=== PATIENT | male | born 1940 | race Caucasian/White ===

== ENCOUNTER 2019-02-15 04:00 | Inpatient (IN) ==
--- NOTE | 2019-02-15 04:12 | Emergency Department Note ---
History of Present Illness General Chief complaint: Fall Stated complaint: FALL/RIB PAIN/SHORT OF BREATH Time Seen by Provider: 02/15/19 04:06 History of Present Illness This 78-year-old presents to the ER complaining of fall with right chest wall injury Location: Right chest wall Quality: Painful Severity: Moderate Duration: Early this morning Timing: Patient tripped and fell Context: Pain persisted and patient came in Modifying factors: better with rest; worse with activity Patient states he tripped and fell injuring his right side of chest. He does not believe he hit his head. No blood thinners. Patient comes from a retirement. Patient denies abdominal pain, numbness, tingling, facial pain, back pain, localized weakness or any other medical complaints. Home Medications Home Medications Medication Instructions Recorded Confirmed Type No Known Home Medications 02/15/19 02/15/19 History Allergies Allergy/AdvReac Type Severity Reaction Status Date / Time cat dander Allergy Unknown RESPIRATORY Verified 02/06/19 13:43 SYMPTOMS HAYFEVER Allergy UNKNOWN Uncoded 02/06/19 13:43 Past Med/Surg History Medical History Asthma Cerebral palsy History of ingrown nail Prostate cancer Surgical History S/P cataract surgery S/P tonsillectomy Family History Brother Prostate cancer Social History Preferred Language: Kuwaiti Communication Ability: Effective Early Childhood Associate Required: No Beliefs That Will Affect Care: None marital status: Single Current Living Situation: Alone current occupational status: retired Other Information That Helps Us Care for You: No Feels Safe at Home: Yes Safety Concerns: Feels Safe At This Time Smoking Status: Never smoker Do You Dip or Chew Tobacco: No ; Second Hand Exposure: No ; Tobacco Cessation Education Requested by Patient: No Hx Alcohol Use: Yes Alcohol type: wine Hx Substance Use: No Review of Systems All systems reviewed & are unremarkable except as noted in HPI & below Physical Exam Vital Signs Vital Signs - 24 hr 02/15/19 04:07 02/15/19 04:26 02/15/19 04:27 Temperature 36.8 C Temperature Source Oral Sepsis Recent Fever Within 48 Hours No Sepsis New/Unexplained Change in Mental Status No Sepsis Action Taken by Nursing No Action Required Oxygen Flow Rate - Titration Pulse Oximetry Post Tiitration Pulse Rate 78 75 Pulse Rate [Apical] 73 Pulse Rate from SpO2 Sensor Respiratory Rate 18 20 Respiratory Effort / Characteristics Non-Labored Respiratory Depth Normal Normal Respiratory Pattern Blood Pressure 197/113 H Blood Pressure [Right Arm] 168/86 H Blood Pressure Mean 141 Blood Pressure Mean [Right Arm] 113 Blood Pressure Position [Right Arm] Lying Pulse Oximetry 94 91 91 Oxygen Delivery Method Room Air Room Air Room Air Oxygen Flow Rate 02/15/19 04:58 02/15/19 05:00 02/15/19 05:10 Temperature Temperature Source Sepsis Recent Fever Within 48 Hours Sepsis New/Unexplained Change in Mental Status Sepsis Action Taken by Nursing Oxygen Flow Rate - Titration 15 Pulse Oximetry Post Tiitration 100 Pulse Rate 82 81 79 Pulse Rate [Apical] Pulse Rate from SpO2 Sensor 83 80 79 Respiratory Rate 20 16 16 Respiratory Effort / Characteristics Respiratory Depth Respiratory Pattern Blood Pressure 192/105 H 175/98 H 182/102 H Blood Pressure [Right Arm] Blood Pressure Mean 134 123 128 Blood Pressure Mean [Right Arm] Blood Pressure Position [Right Arm] Pulse Oximetry 100 100 100 Oxygen Delivery Method Non-rebreather Non-rebreather Non-rebreather Oxygen Flow Rate 15 15 15 02/15/19 05:13 02/15/19 05:20 02/15/19 06:00 Temperature Temperature Source Sepsis Recent Fever Within 48 Hours Sepsis New/Unexplained Change in Mental Status Sepsis Action Taken by Nursing Oxygen Flow Rate - Titration Pulse Oximetry Post Tiitration Pulse Rate 76 74 67 Pulse Rate [Apical] Pulse Rate from SpO2 Sensor 75 74 67 Respiratory Rate 15 17 18 Respiratory Effort / Characteristics Respiratory Depth Respiratory Pattern Blood Pressure 166/97 H 161/89 H 170/99 H Blood Pressure [Right Arm] Blood Pressure Mean 120 113 122 Blood Pressure Mean [Right Arm] Blood Pressure Position [Right Arm] Pulse Oximetry 100 99 100 Oxygen Delivery Method Non-rebreather Non-rebreather Non-rebreather Oxygen Flow Rate 15 15 15 02/15/19 06:13 02/15/19 06:30 02/15/19 07:00 Temperature Temperature Source Sepsis Recent Fever Within 48 Hours Sepsis New/Unexplained Change in Mental Status Sepsis Action Taken by Nursing Oxygen Flow Rate - Titration Pulse Oximetry Post Tiitration Pulse Rate 58 L 60 62 Pulse Rate [Apical] Pulse Rate from SpO2 Sensor 59 L 59 L 62 Respiratory Rate 13 14 15 Respiratory Effort / Characteristics Respiratory Depth Respiratory Pattern Blood Pressure 142/78 H 145/80 H 169/83 H Blood Pressure [Right Arm] Blood Pressure Mean 99 101 111 Blood Pressure Mean [Right Arm] Blood Pressure Position [Right Arm] Pulse Oximetry 99 100 100 Oxygen Delivery Method Non-rebreather Non-rebreather Oxygen Flow Rate 15 15 02/15/19 07:01 02/15/19 07:26 02/15/19 07:30 Temperature Temperature Source Sepsis Recent Fever Within 48 Hours Sepsis New/Unexplained Change in Mental Status Sepsis Action Taken by Nursing Oxygen Flow Rate - Titration Pulse Oximetry Post Tiitration Pulse Rate 57 L 71 Pulse Rate [Apical] Pulse Rate from SpO2 Sensor 58 L 69 Respiratory Rate 13 13 Respiratory Effort / Characteristics Respiratory Depth Respiratory Pattern Blood Pressure 177/94 H Blood Pressure [Right Arm] Blood Pressure Mean 121 Blood Pressure Mean [Right Arm] Blood Pressure Position [Right Arm] Pulse Oximetry 100 100 97 Oxygen Delivery Method Nasal Cannula Nasal Cannula Oxygen Flow Rate 2 2 02/15/19 07:45 Temperature Temperature Source Sepsis Recent Fever Within 48 Hours Sepsis New/Unexplained Change in Mental Status Sepsis Action Taken by Nursing Oxygen Flow Rate - Titration Pulse Oximetry Post Tiitration Pulse Rate Pulse Rate [Apical] Pulse Rate from SpO2 Sensor Respiratory Rate Respiratory Effort / Characteristics Non-Labored Spontaneous Respiratory Depth Normal Respiratory Pattern Regular Blood Pressure Blood Pressure [Right Arm] Blood Pressure Mean Blood Pressure Mean [Right Arm] Blood Pressure Position [Right Arm] Pulse Oximetry Oxygen Delivery Method Nasal Cannula Oxygen Flow Rate 2 PHYSICAL EXAM: VITALS: Vitals are noted on the nurse's note and reviewed by myself. Vital signs stable. GENERAL: Pleasant male who appears in pain, in no acute distress, n ondiaphoretic, well-developed well-nourished. SKIN: Abrasion to right lateral wall, the rest of the skin was without obvious lacerations or abrasions. Capillary reflex less than 2 seconds. HEAD: Normocephalic atraumatic. EARS: External auditory canals clear, tympanic membranes pearly taylor without erythema or effusion bilaterally. No hemotympanums. No padilla sign. No mastoid tenderness. EYES: Pupils equal round and reactive to light and accommodation. Conjunctivae without injection, sclerae without icterus. Extraocular movements intact. NOSE: Patent, turbinates without inflammation or discharge. No sinus tenderness. No septal hematoma or bleeding. FACE: No facial bone tenderness. Full range of motion of the jaw without tenderness. MOUTH: Mucous membranes moist. Pharynx without erythema or exudate. Uvula midline. Airway patent. Tongue does not deviate. NECK: Supple without nuchal rigidity. Cervical spine is nontender. Full range of motion of the neck without tenderness. No JVD. HEART: Regular rate and rhythm LUNGS: Diminished breath sounds in the right lower lung field. No retractions or accessory muscle use. Right lower lateral chest wall tenderness. ABDOMEN: Positive bowel sounds x 4. Normal tympanic percussion. Soft, nontender, without masses or organomegaly. No guarding or rebound tenderness. MUSCULOSKELETAL: No tenderness of the thoracic or lumbar spine. No tenderness with pelvic rocking. Full range of motion without tenderness to palpation in all extremities. Strength 5/5 throughout. P NEURO: Patient was alert and oriented to person place and time. Normal Mini- Mental status exam. Normal sensation to light and sharp touch. Negative pronator drift. Cerebellar function intact. No focal neurological deficits. Course Administered Medications Heparin Sodium (Porcine) (Heparin Sodium (Porcine)) 5,000 units SQ Q8 [facility] Stop: 03/17/19 13:59 Last Admin: 02/15/19 21:26 Dose: 5,000 units Documented by: [id number] Cosigned by: [id number] Admin: 02/15/19 14:20 Dose: 5,000 units Documented by: [id number] Cosigned by: [id number] Acetaminophen (Ofirmev) 1,000 mg in 100 mls @ 400 mls/hr IV Q8@0000,0800,1600 [facility] Stop: 03/17/19 09:09 Last Admin: 02/15/19 23:38 Dose: 400 mls/hr Documented by: [id number] Infusion: 02/15/19 16:25 Dose: 0 mls/hr Documented by: [id number] Admin: 02/15/19 15:59 Dose: 400 mls/hr Documented by: [id number] Infusion: 02/15/19 10:33 Dose: 0 mls/hr Documented by: [id number] Admin: 02/15/19 10:17 Dose: 400 mls/hr Documented by: [id number] Ioversol (Optiray 320 100ml) 100 ml IV ONCE PRN PRN Reason: Interaction Checking Stop: 02/19/19 04:48 Last Admin: 02/15/19 04:50 Dose: 92 ml Documented by: [id number] Discontinued Medications Cefazolin Sodium (Ancef 3000mg) 2,000 mg IV NOW STA Stop: 02/15/19 05:11 Last Admin: 02/15/19 05:33 Dose: Not Given Documented by: [id number] Fentanyl Citrate (Fentanyl Citrate) 50 mcg IV NOW STA Stop: 02/15/19 04:51 Last Admin: 02/15/19 05:01 Dose: 50 mcg Documented by: [id number] Fentanyl Citrate (Fentanyl Citrate) 50 mcg IV NOW STA Stop: 02/15/19 05:16 Last Admin: 02/15/19 05:05 Dose: 50 mcg Documented by: [id number] Cefazolin Sodium (Ancef 2000mg) 2,000 mg in 15 mls @ 3.75 mls/min IV NOW STA Stop: 02/15/19 05:21 Last Admin: 02/15/19 05:33 Dose: 3.75 mls/min Documented by: [id number] Lidocaine HCl (Xylocaine 1% (Local)) 20 ml INFIL NOW ONE Stop: 02/15/19 04:51 Last Admin: 02/15/19 05:20 Dose: 20 ml Documented by: [id number] Morphine Sulfate (Morphine Sulfate) 4 mg IV NOW STA Stop: 02/15/19 05:54 Last Admin: 02/15/19 05:57 Dose: 4 mg Documented by: [id number] Medical Decision Making Medical Records Attestation: I reviewed the patient's medical records. Home Medications Current Medication List: was personally reviewed by me Laboratory Data Attestation: I reviewed the patient's lab results. Result diagrams: 02/15/19 06:00 02/15/19 06:00 Lab Results 02/15/19 02/15/19 02/15/19 Range/Units 04:14 05:48 06:00 WBC 14.82 H (4.8-10.8) K/uL RBC 4.51 L (4.7-6.1) M/uL Hgb 12.9 L (14.0-18.0) g/dL POC Hgb 13.9 L (14.0-18.0) g/dl Hct 38.6 L (42-52) % POC Hct 41 L (42-52) % MCV 85.6 (80-100) fL MCH 28.6 (25-34) pg MCHC 33.4 (32-36) g/dL RDW Std Deviation 44.4 (36.4-46.3) fL RDW Coeff of Arpit 14.1 (11.5-14.5) % Plt Count 199 (130-400) K/uL MPV 10.2 (7.4-10.4) fL Immature Gran % (Auto) 0.3 % Neut % (Auto) 89.4 % Lymph % (Auto) 4.3 % Edmunds % (Auto) 5.4 % Eos % (Auto) 0.5 % Baso % (Auto) 0.1 % Immature Gran # (Auto) 0.04 H (0.00-0.02) K/uL Neut # (Auto) 13.25 H (1.4-6.5) K/uL Lymph # (Auto) 0.63 L (1.2-3.4) K/uL Edmunds # (Auto) 0.80 H (0.11-0.59) K/uL Eos # (Auto) 0.08 (0-0.5) K/uL Baso # (Auto) 0.02 (0-0.2) K/uL PT (9.0-12.0) Seconds INR (0.9-1.1) APTT (21.0-31.0) Seconds PTT Ratio POC Sodium 140 (135-144) mEq/L Sodium (136-145) mmol/L POC Potassium 3.9 (3.3-5.0) mEq/L Potassium (3.5-5.1) mmol/L POC Chloride 100 L (101-112) mEq/L Chloride (98-107) mmol/L Carbon Dioxide (21-32) mmol/L POC Total CO2 30 (24-31) mEq/l Anion Gap (3-11) POC Anion Gap 15.0 L (16-25) mmol/L POC BUN 23 H (7-18) mg/dl BUN (7-18) mg/dl Creatinine (0.6-1.4) mg/dl POC Creatinine 1.2 (0.6-1.3) mg/dl Est Cr Clr Drug Dosing ml/min Est GFR ( Amer) Est GFR (Non-Af Amer) BUN/Creatinine Ratio (10-20) Glucose (70-99) mg/dl POC Glucose (other) 131 H (70-99) mg/dl Calcium (8.5-10.1) mg/dl POC Ioniz Calcium Eugene 1.11 L (1.12-1.32) mmol/l Total Bilirubin (0.2-1) mg/dl AST (15-37) U/L ALT (12-78) U/L Alkaline Phosphatase (45-117) U/L Total Protein (6.4-8.2) gm/dl Albumin (3.4-5.0) gm/dl Globulin (2.5-4.0) gm/dl Albumin/Globulin Ratio (0.9-2) Urine Color Yellow Urine Appearance Clear (Clear) Urine pH 6.5 (4.5-7.5) Ur Specific Exeter 1.036 H (1.000-1.030) Urine Protein Negative (Negative) Urine Glucose (UA) Negative (Negative) Urine Ketones Negative (Negative) Urine Blood Negative (Negative) Urine Nitrite Negative (Negative) Urine Bilirubin Negative (Negative) Urine Urobilinogen Negative (Negative) Ur Leukocyte Esterase Negative (Negative) 02/15/19 02/15/19 Range/Units 06:00 06:00 WBC (4.8-10.8) K/uL RBC (4.7-6.1) M/uL Hgb (14.0-18.0) g/dL POC Hgb (14.0-18.0) g/dl Hct (42-52) % POC Hct (42-52) % MCV (80-100) fL MCH (25-34) pg MCHC (32-36) g/dL RDW Std Deviation (36.4-46.3) fL RDW Coeff of Arpit (11.5-14.5) % Plt Count (130-400) K/uL MPV (7.4-10.4) fL Immature Gran % (Auto) % Neut % (Auto) % Lymph % (Auto) % Edmunds % (Auto) % Eos % (Auto) % Baso % (Auto) % Immature Gran # (Auto) (0.00-0.02) K/uL Neut # (Auto) (1.4-6.5) K/uL Lymph # (Auto) (1.2-3.4) K/uL Edmunds # (Auto) (0.11-0.59) K/uL Eos # (Auto) (0-0.5) K/uL Baso # (Auto) (0-0.2) K/uL PT 10.3 (9.0-12.0) Seconds INR 1.0 (0.9-1.1) APTT 24.6 (21.0-31.0) Seconds PTT Ratio 0.9 POC Sodium (135-144) mEq/L Sodium 139 (136-145) mmol/L POC Potassium (3.3-5.0) mEq/L Potassium 3.8 (3.5-5.1) mmol/L POC Chloride (101-112) mEq/L Chloride 103 (98-107) mmol/L Carbon Dioxide 31 (21-32) mmol/L POC Total CO2 (24-31) mEq/l Anion Gap 5.0 (3-11) POC Anion Gap (16-25) mmol/L POC BUN (7-18) mg/dl BUN 21 H (7-18) mg/dl Creatinine 1.18 (0.6-1.4) mg/dl POC Creatinine (0.6-1.3) mg/dl Est Cr Clr Drug Dosing 41.4 ml/min Est GFR ( Amer) 68.1 Est GFR (Non-Af Amer) 58.8 BUN/Creatinine Ratio 18.1 (10-20) Glucose 117 H (70-99) mg/dl POC Glucose (other) (70-99) mg/dl Calcium 8.8 (8.5-10.1) mg/dl POC Ioniz Calcium Eugene (1.12-1.32) mmol/l Total Bilirubin 0.3 (0.2-1) mg/dl AST 17 (15-37) U/L ALT 16 (12-78) U/L Alkaline Phosphatase 87 (45-117) U/L Total Protein 7.4 (6.4-8.2) gm/dl Albumin 3.7 (3.4-5.0) gm/dl Globulin 3.7 (2.5-4.0) gm/dl Albumin/Globulin Ratio 1.0 (0.9-2) Urine Color Urine Appearance (Clear) Urine pH (4.5-7.5) Ur Specific Exeter (1.000-1.030) Urine Protein (Negative) Urine Glucose (UA) (Negative) Urine Ketones (Negative) Urine Blood (Negative) Urine Nitrite (Negative) Urine Bilirubin (Negative) Urine Urobilinogen (Negative) Ur Leukocyte Esterase (Negative) Imaging Data Attestation: I personally reviewed and interpreted this imaging study as follows: Blood Pressure Blood Pressure Findings: Elevated blood pressure Blood Pressure Disposition: Referred to patients primary care provider [facility] Narrative Prior records/ancillary studies reviewed. Triage Nursing notes reviewed. Additional history obtained from EMS. The patient's history was concerning for traumatic injury Differential diagnosis: Etiologies such as fracture, dislocation, intra-abdominal, pneumothorax, intrathoracic , intracranial, neurologic, as well as other traumatic pathologies were entertained. Physical examination findings: As above. The patients vitals were hypertensive. ER treatment provided: IV Normal Saline hydration chest tube, 8 Icelandic 16 cm Indication: Pneumothorax Written consent was obtained after the risks and benefits were explained, including but not limited to cardiac/liver/lung injury, bleeding, scarring, infection, pain, and bone/joint/nerve damage. At this time, the risks of the procedure are less than the risks of NOT performing the procedure. A time out was taken and the correct patient and site identified. The patient was prepped and draped in the standard surgical fashion. 1% lidocaine without epinephrine was infused over the fifth intercostal space into the subcutaneous tissue. A 1 cm incision was made transversely in the mid axillary line over the fifth int ercostal rib. The introducer was placed over the fifth rib and a gush of air was felt. Introducer was advanced and condensation was noted in the tube. 8 Icelandic thoracostomy tube was inserted in the superior/posterior portion of the pleural space. 1-0 silk suture was used to approximate the skin above the thoracostomy tube and then used to secure the thoracostomy tube. An occlusive dressing was then placed and the thoracostomy tube was hooked to the Pleur-evac suction. No air leak was appreciated. The patient tolerated the procedure well without complications. A postoperative x-ray was then performed which showed the thoracostomy tube in the correct position. On reassessment the patient felt better. Vital signs were stable. Diagnostic interpretation by me: EKG ordered for pneumothorax EKG: Normal sinus, normal intervals, no acute ST-T wave changes. Impression normal sinus rhythm interpreted by myself I think arrhythmia is unlikely. EKG shows normal sinus rhythm with no interval abnormalities such as QT prolongation or WPW. There are no findings to suggest Brugada syndrome. Cardiac monitoring in the emergency department reveals no tachycardic or bradycardic dysrhythmia. Hypertrophic cardiomyopathy was considered but there are no clear historical elements pointing toward this. EKG is not suggestive. The QRS voltage is not extremely large and there are no suggestive Q waves. The labs revealed stable creatinine, mild anemia Imaging studies: CT CHEST With Contrast: Comparison is made to CT chest on 10/28/2011. Nondisplaced, comminuted fractures of the right posterolateral ninth rib. Overlying subcutaneous emphysema. Moderate right-sided pneumothorax, approximately 30% of the lung volume. Trace pleural fluid on the right. Patchy densities in the right lung may represent atelectasis versus contusions. Nonspecific small mediastinal lymph nodes. Probable hemangioma in the right liver. Left renal cyst. Question cholelithiasis partially visualized. Radiologist: Tang Amezcua M.D. CT HEAD: No acute intracranial abnormality identified. Chronic small vessel ischemic disease and cerebral volume loss. Prominent atrophy of the cerebellar hemispheres. Bilateral lens implants. Polyps versus mucous retention cysts in the maxillary sinuses. Mild mucosal thickening in the ethmoid air cells. Atherosclerotic calcifications in the intracranial vasculature. Radiologist: Tang Amezcua M.D. CT C SPINE: No acute traumatic abnormality identified. Osteopenia. Degenerative changes of the spine. Ossification in the nuchal ligament is likely related to remote trauma. Atherosclerotic changes of the vasculature. Radiologist: Tang Amezcua M.D. Postprocedural chest x-ray shows proper placement of chest tube with better inflation of the lung per my interpretation. Consultation: A consultation was placed with Dr. Krishnan. The case was discussed and diagnostics were reviewed. He will evaluate the patient. Medicine was consulted. They will evaluate the patient. This appears to be consistent with rib fracture with pneumothorax. Chest tube was placed. Postprocedural x-ray shows proper placement of the tube. Lung is inflated better. Cardiothoracic was consulted along with medicine. Patient will be evaluated for admission. Patient was started antibiotics. His pain is managed. By the evaluation outlined above emergent etiologies such as intr a-abdominal, intracranial, neurologic,as well as others were deemed relatively unlikely. Repeat abdominal exam is benign. Patient felt much better after being medicated and having the chest tube placed. I attempted to call the niece per the patient's request with no response. The pt informed about the findings as listed above. All questions were answered and pleased with the treatment. I have personally spent greater than 30 minutes of critical care time in the direct management of this patient. This includes bedside care, interpretation of diagnostic studies, and testing, discussion with consultants, patient, and family members, and other required patient management activities. This 30 minutes is in excess of all separately billable procedures. Case reviewed with my attending The chart was completed utilizing [employer] Speech voice recognition software. Grammatical errors, random word insertions, pronoun errors, and incomplete sentences are an occassional consequence of this system due to software limitations, ambient noise, and hardware issues. Any formal questions or concerns about the content, text, or information contained within the body of this dictation should be directly addressed to the physician assistant prosecuting attorney for clarification. Impression & Plan Pneumothorax, Closed rib fracture, Fall Discharge Plan Visit Data *Final* Discharge Date/Time: 02/15/19 08:51 Chief Complaint: Fall Stated Complaint: FALL/RIB PAIN/SHORT OF BREATH ED Provider: Chong Silva ED Midlevel Provider: Kate Badillo Discharge Problem: Pneumothorax, Closed rib fracture, Fall Patient Disposition: Admitted As Inpatient Condition: Good Discharge Instructions Interventions: ED Discharge Assessment Last Done: 02/15/19 08:51 Discharge Problem: Pneumothorax Qualifiers: Pneumothorax type: traumatic Encounter type: initial encounter Qualified Code(s): S27.0XXA - Traumatic pneumothorax, initial encounter
[2019-02-15 04:26] LABS: iSTAT Creatinine 1.2 mg/dl (0.6-1.3); iSTAT Hemoglobin 13.9 g/dl (14.0-18.0); iSTAT Ionized Calcium 1.11 mmol/l (1.12-1.32); iSTAT Potassium 3.9 mEq/L (3.3-5.0)
[2019-02-15] MEDS ORDERED: IOVERSOL 100ml IV PRN (04:49)
[2019-02-15] MEDS ORDERED: LIDOCAINE HCL 1% 20 ML VIAL INFIL ONE (04:50)
[2019-02-15] MEDS ORDERED: fentaNYL citrate 100 MCG/2 ML VIAL IV STA ×2 (04:50→05:15)
[2019-02-15] MEDS ORDERED: CEFAZOLIN 3000MG/72.5 ML BAG IV STA (05:10)
[2019-02-15] MEDS ORDERED: CEFAZOLIN 2000MG 2,000 MG/15 ML SYR IV STA (05:18)
--- NOTE | 2019-02-15 05:21 | Emergency Department Note ---
ED Visit Note Physician Evaluation Note: I have personally evaluated and examined this patient. I agree with assessment and plan of Genet Badillo PA-C. Pleasant 78 yr old male with history CP who notes he got up this morning and tripped landing on right side. Immediately pain and difficulty taking deep breath. States feels OK if not moving or deep breath. On exam mild hypoxia (94%) on RA. TTP right lower lateral ribs with abrasion noted at this area. No significant crepitus appreciated initially. CT head/cervical OK. CT chest with large pneumothorax. 8 Fr chest tube placed by Genet Badillo with air noted and post CXR with well inflated lung (mild pneumo appreciated still). Patient tolerated this well with IV fentanyl used for pain control. I reviewed with Dr Krishnan who will evaluate patient further and hospitalist will be consulted for admission given his comorbidities. Repeat evals patient breathing comfortably and sats 100% on NRB (pneumothorax protocol). Abdominal exam benign and chest tube without apparent leak. Brant Hong MD
[2019-02-15] MEDS ORDERED: MoRPHine SULFATE 4 MG/ML 1 ML CARP\\VIAL IV STA (05:53)
[2019-02-15 06:17] LABS: Basophils # (auto) 0.02 K/uL (0-0.2); Basophils % (auto) 0.1 %; Eosinophils # (auto) 0.08 K/uL (0-0.5); Eosinophils % (auto) 0.5 %; Hematocrit (blood only) 38.6 % (42-52); Hemoglobin 12.9 g/dL (14.0-18.0); Immature Granulocytes # (auto) 0.04 K/uL (0.00-0.02); Immature Granulocytes % (auto) 0.3 %; Lymphocytes # (auto) 0.63 K/uL (1.2-3.4); Lymphocytes % (auto) 4.3 %; Mean Corpuscular Hemoglobin 28.6 pg (25-34); Mean Corpuscular Hgb Conc 33.4 g/dL (32-36); Mean Corpuscular Volume 85.6 fL (80-100); Mean Platelet Volume 10.2 fL (7.4-10.4); Monocytes % (auto) 5.4 %; Neutrophils # (auto) 13.25 K/uL (1.4-6.5); Neutrophils % (auto) 89.4 %; Platelet Count 199 K/uL (130-400); RDW Coefficient of Variation 14.1 % (11.5-14.5); RDW Standard Deviation 44.4 fL (36.4-46.3); Red Blood Count 4.51 M/uL (4.7-6.1); White Blood Count 14.82 K/uL (4.8-10.8)
[2019-02-15 06:34] LABS: Albumin Level 3.7 gm/dl (3.4-5.0); BUN Creatinine Ratio 18.1 (10-20); Calcium 8.8 mg/dl (8.5-10.1); Creatinine Clr Calc Pharmacy 41.4 ml/min; Est GFR (African American) 68.1; Est GFR (Non-African American) 58.8; Potassium 3.8 mmol/L (3.5-5.1)
[2019-02-15 06:36] LABS: Bilirubin,Total 0.3 mg/dl (0.2-1); Globulin 3.7 gm/dl (2.5-4.0); Total Protein 7.4 gm/dl (6.4-8.2)
[2019-02-15 06:40] LABS: Partial Thromboplastin Ratio 0.9; Partial Thromboplastin Time 24.6 Seconds (21.0-31.0); Prothrombin Time 10.3 Seconds (9.0-12.0)
[2019-02-15 06:43] LABS: Appearance Urine Clear (Clear); Bilirubin Urine Negative (Negative); Blood Urine Negative (Negative); Color Urine Yellow; Glucose Urine UA Negative (Negative); Ketones Urine Negative (Negative); Leukocyte Esterase Urine Negative (Negative); Nitrite Urine Negative (Negative); Protein Urine Negative (Negative); Specific Gravity Urine 1.036 (1.000-1.030); Urobilinogen Urine Negative (Negative); pH Urine 6.5 (4.5-7.5)
--- NOTE | 2019-02-15 06:58 | XRay Report ---
XR chest 1V portable CLINICAL HISTORY: post pigtail insertion for pneumo COMPARISON STUDY: Chest CT dated 02/15/2019 FINDINGS: The heart is enlarged. There has been interval insertion of a right-sided chest tube. No pn eumothorax is visualized. There is no overt failure. There is mild interstitial thickening/atelectasi s at the lung bases. There are no significant pleural effusions.[ IMPRESSION: Interval insertion of a right-sided chest tube. No evidence of pneumothorax. Electronically signed by: Costa Stevens M.D. 02/15/2019 6:57 AM
--- NOTE | 2019-02-15 07:09 | CT Scan Report ---
CT head/brain wo con CLINICAL HISTORY: 78 years-old Male presenting with fall. TECHNIQUE: Multidetector CT imaging of the head was performed without the use of intravenous contrast . IV contrast: None. One or more dose lowering techniques were used consistent with the principles of ALARA (as low as reasonably achievable), including automatic exposure control, mA or kV adjustment t o individual patient size, and/or use of iterative reconstruction. COMPARISON: None. CT DOSE (mGy.cm): The estimated cumulative dose is 1269.30. FINDINGS: Woodworker Helper topogram: Unremarkable. Proportional ventricular and sulcal prominence, likely age-related parenchymal volume loss. No hemorr mita. Focal atrophy of the cerebellar hemispheres, which most severely affects the superior and gabriela edian portions. Brain parenchyma otherwise normal in appearance with preserved taylor-white differentia tion. No acute territorial infarct. No mass effect or midline shift. No extra-axial fluid collection. Minimal mucosal thickening in ethmoid air cells and maxillary sinuses. Calvarium intact. IMPRESSION: 1. No acute intracranial abnormality. 2. Cerebellar atrophy. This can be seen in the setting of certain medication use or vitamin deficien cies among many other etiologies. Electronically signed by: Santos Tipton M.D. 02/15/2019 7:08 AM
--- NOTE | 2019-02-15 07:21 | CT Scan Report ---
CT OF THE CERVICAL SPINE WITHOUT CONTRAST CLINICAL HISTORY: Fall. COMPARISON STUDY: No previous studies for comparison. TECHNIQUE: Helical axial images of the cervical spine were obtained without IV contrast. Sagittal a nd coronal reconstructions were viewed. Automated exposure control was utilized for the study. A do se lowering technique was utilized adhering to the principles of ALARA. FINDINGS: Alignment of the cervical spine is anatomic. Vertebral body heights are maintained. No acut e cervical spine fracture or subluxation is present. There is no prevertebral edema. Facet joints are intact. Moderate multilevel degenerative changes within the cervical spine are noted. A right pneum othorax is better depicted on the chest CT. IMPRESSION: 1. No acute cervical spine fracture or subluxation. 2. Right pneumothorax which is better depicted on the chest CT. Please see that report for further de scription. Electronically signed by: Rajendra Wood M.D. 02/15/2019 7:20 AM
--- NOTE | 2019-02-15 07:33 | CT Scan Report ---
CT OF THE CHEST WITH IV CONTRAST CLINICAL HISTORY: fall, right sided cp COMPARISON STUDY: Chest CT October 28, 2011. TECHNIQUE: Following IV administration of 92 mL of Optiray-320, helical axial images of the chest we re obtained. Sagittal and coronal reconstructions were viewed as well as maximal intensity projectio ns on an independent 3-D workstation. Automated exposure control was utilized for the study. A dose lowering technique was utilized adhering to the principles of ALARA. CT DOSE: 1269.30 mGy.cm FINDINGS: There is no evidence for traumatic injury to the thoracic aorta. The heart is mildly enlar ged. Prominent retrocrural lymph nodes are unchanged since CT of October 28, 2011. These are benign. The re is a moderate right pneumothorax. An acute nondisplaced fracture of the posterolateral right ninth rib is noted. No acute left rib fractures noted. There is no acute thoracic spine fracture. Right rodrigo ng airspace opacities reflect atelectasis. A cyst within the upper pole the left kidney is noted. A r ight hepatic lobe lesion is unchanged since prior CT. This benign given stability. There are small ga llstones within the gallbladder. IMPRESSION: 1. Moderate right pneumothorax. Acute nondisplaced fracture of the posterolateral right ninth rib. 2. No evidence for traumatic injury to the thoracic aorta. Electronically signed by: Rajendra Wood M.D. 02/15/2019 7:32 AM
--- NOTE | 2019-02-15 08:02 | Consultation Report ---
DATE OF CONSULTATION: 02/15/2019 REASON FOR CONSULTATION: 1. Right pneumothorax. 2. Rib fracture. HISTORY OF PRESENT ILLNESS: This is a 78-year-old male who presented to the Emergency Department secondary to pain in his right chest wall. The patient says that he got up out of bed last evening and he tripped ultimately falling, landing on the right side of his chest. Because of his symptomatology, he presented to the Emergency Department. In the Emergency Department, the patient underwent various diagnostic imaging including a CT scan of his head that showed no acute intracranial injuries. He did have a CT scan of his chest that showed a moderate right pneumothorax and a fracture of his right ninth rib that was nondisplaced. Cervical spine CT scan showed no evidence of cervical spine fracture or subluxation. Because of the pneumothorax noted, the treating clinician in the Emergency Department placed a chest tube. A post-procedure chest x-ray showed resolution of the patient's pneumothorax. The patient has ultimately been admitted to the medical service and we have been asked to see for management of his pneumothorax, chest tube and rib fractures. At the time of our visit in the Emergency Department, the patient was resting comfortably in bed. He did complain of some pain where his chest tube was inserted. Concerning other symptomatology, he did fall as noted above. It was a mechanical fall, did not report any preceding chest pain or syncope. There is no clear indication of head injury. He denies any tinnitus, vertigo, visual changes, sore throat, or neck pain. He does note some right-sided chest wall pain. Currently, he is not short of breath. He denies any abdominal pain, nausea, vomiting or myalgias. He has no history of DVT or PE. PAST MEDICAL HISTORY: Includes the followin. History of cerebral palsy. 2. Asthma. 3. History of prostate cancer. PAST SURGICAL HISTORY: Includes: 1. Cataract surgery. 2. Tonsillectomy. FAMILY HISTORY: His brother suffered from prostate cancer. SOCIAL HISTORY: He is a lifetime nonsmoker. ALLERGIES: HE HAS LISTED ALLERGIES TO CAT DANDER. HOME MEDICATIONS: None. REVIEW OF SYSTEMS: As described above. PHYSICAL EXAMINATION: VITAL SIGNS: Blood pressure is 145/80, pulse 60 and regular, respirations are 16 and unlabored. He is afebrile, temperature 36.8. Pulse ox is 100% on 2 liters nasal cannula. GENERAL: He is alert, he is oriented x3, he is in no distress. HEENT: There are no signs of head trauma. Eyes: There is no conjunctival abnormality. Ears: Auditory acuity is grossly intact. Nose: There is no evidence of nasal trauma. Mouth: Has dry mucous membranes. NECK: Supple without tracheal shift. CARDIOVASCULAR: Regular rate and rhythm. LUNGS: Revealed breath sounds were present bilaterally, no use of accessory muscles was noted. ABDOMEN: Soft and nontender. EXTREMITIES: Revealed no cyanosis, clubbing or edema. NEUROLOGIC: Revealed the patient was alert and oriented x3. He can move all 4 extremities without noted focal deficits. DIAGNOSTIC DATA: As noted above. In addition, the patient had a CBC where his white blood cell count is 14.8, hemoglobin and hematocrit are 12.9 and 38.6, platelet count is noted to be within the normal range. Coagulation studies are noted to be within normal range. Chemistry profile showed sodium, potassium as well as creatinine are normal. There is slight elevation of his BUN at 21. IMPRESSION: A 78-year-old male status post fall resulting in rib fracture and pneumothorax. PLAN: As stated, the treating Emergency Room clinician has placed a chest tube. We will continue the chest tube. We will place it on waterseal for 4 hours alternating with suction at 20 cm of water for 4 hours. We will follow serial chest x-rays. At the present time, he does not have an air leak, so his chest tube may be able to be removed in the next 24-48 hours. Concerning rib fractures, mainstay of treatment for this will be adequate pain control. I would recommend using Tylenol 1000 mg IV every 8 hours on a scheduled basis along with p.r.n. oxycodone to achieve adequate pain control, so the patient can cough and deep breathe adequately. I have ordered incentive spirometry. The remainder of his care will be deferred to the medical service.
[2019-02-15] MEDS ORDERED: ONDANSETRON INJ 2 MG/ML 2 ML VIAL IV PRN (08:58)
[2019-02-15] MEDS: ACETAMINOPHEN 1,000 MG/100 ML VIAL IV SCH ×3 (10:17→23:38)
[2019-02-15] MEDS: HEPARIN SOD 5,000 UNIT/0.5 ML VIAL SQ SCH ×2 (14:20→21:26)
--- NOTE | 2019-02-15 14:20 | History & Physical Report ---
Date of Service February 15, 2019 Assessment & Plan (1) Pneumothorax: 78-year-old male was admitted on 15 February 2019 for pneumothorax following a fall. Pneumothorax, non-displaced right ninth rib fracture, fall: Likely had some transient orthostatic hypotension leading to a sudden fall earlier this morning. No reports of associated headache, chest pain/palpitations, preceding breathing difficulties, or recent illness. - In ED, afebrile, briefly bradycardic, mild to moderately hypertensive, and ultimately SpO2 96% on room air. WBC 14. Hemoglobin 12.9. Normal INR. Creatinine 1.18 (similar to 2012). EKG is NSR 72. CT head & c-spine non-acute. CT chest notes moderate right PTX (see full report). - In ED, a chest tube was placed. Given single dose of Ancef. - Thoracic surgery was consulted (see related notes). They will keep the chest tube on alternating suction and waterseal. Recommended pain control with Tylenol and as needed oxycodone for the rib fracture. Incentive spirometry as well. - Pneumothorax management per thoracic surgery. Repeat CXR in the morning. C ontinued pain management as above. Is on a small amount of supplemental oxygen. Incidental CT chest findings (reviewed these with patient recommended f/u with PCP for monitoring): - Cyst in the upper pole of the left kidney. - Right hepatic lobe lesions unchanged since prior CT. - Small gallstones within the gallbladder. Ongoing medical issues: - Cerebral palsy: Minimal deficits. CT head did note some cerebellar atrophy. - Seasonal allergies: Reportedly not on any home meds for this. - Prostate cancer: Diagnosed in 2017. History of radiation therapy and hormone ablation. Patient denies current related concerns. Code status: Conditional. Wants chest compressions but no mechanical ventilation. Diet: Regular. DVT prophy: Heparin every 8 hours. PT/OT: Deferred. Disbo: Admitted to [facility] with telemetry. Lives in a [facility] home. (2) Closed rib fracture: (3) Fall: (4) Cyst of left kidney: (5) Liver lesion, left lobe: (6) Gallstones: (7) Cerebral palsy: (8) Seasonal allergies: (9) Prostate cancer: History of Present Illness Primary Care Provider: NO PCP 78-year-old male presents to the emergency department after suffering a mechanical fall prior to arrival. Patient says that much earlier this morning he went to get out of bed to use the bathroom. He thinks he sat up too quickly because he immediately felt a bit more weak and off balance. He then fell and struck the right side of his chest into the leg of his walker. He remembers all events and denies any head injury or loss of consciousness. He says he tried to get back up but it was too painful, so he called for assistance (lives in a [facility] home) and was ultimately brought to the hospital. At present, patient says that the right side of his chest is uncomfortable but not particularly painful. He did have some immediate difficulty breathing which has improved since placement of his chest tube. Denies any classic "chest pain" throughout this time. He denies any known trauma otherwise from his fall, specifically denying any neck, abdominal, back, or extremity pains. No other acute patient concerns. - Past medical history includes seasonal allergies, mild cerebral palsy, prostate cancer. - Past surgical history includes cataract removal, tonsillectomy. - Social history includes never smoked. Occasional alcohol use. Lives in a [facility] home. Allergies Allergy/AdvReac Type Severity Reaction Status Date / Time cat dander Allergy Unknown RESPIRATORY Verified 02/06/19 13:43 SYMPTOMS HAYFEVER Allergy UNKNOWN Uncoded 02/06/19 13:43 Home Medications Home Medications Medication Instructions Recorded Confirmed Type No Known Home Medications 02/15/19 02/15/19 History Past Med/Surg History Medical History Asthma Cerebral palsy History of ingrown nail Prostate cancer Surgical History S/P cataract surgery S/P tonsillectomy Family History Brother Prostate cancer Social History Preferred Language: Hebrew Communication Ability: Effective Gauge Inspector Required: No Beliefs That Will Affect Care: None marital status: Single Current Living Situation: Alone current occupational status: retired Other Information That Helps Us Care for You: No Feels Safe at Home: Yes Safety Concerns: Feels Safe At This Time Smoking Status: Never smoker Do You Dip or Chew Tobacco: No ; Second Hand Exposure: No ; Tobacco Cessation Education Requested by Patient: No Hx Alcohol Use: Yes Alcohol type: wine Hx Substance Use: No Review of Systems Review of Systems: Constitutional: Denies fevers, chills, focal weakness Eyes: Denies any visual loss or diplopia ENT: Denies any ear/nose/throat pain or difficulty speaking or swallowing Respiratory: Positive dyspnea. No preceding cough or hemoptysis. Cardiovascular: Denies any central chest pain or feeling of edema. Positive right chest wall pain. Gastrointestinal: Denies any abdominal pain, nausea/vomiting/diarrhea Musculoskeletal: Denies any acute extremity pains, myalgias, or focal weakness Skin: Denies any known acute rashes or lesions Neuro: Denies any headache, acute focal weakness or numbness, or difficulties with speech or swallow. Physical Exam Physical Exam: GENERAL: Awake, alert, well-appearing, in no acute distress HENT: Normocephalic, atraumatic. Oropharynx unremarkable. EYES: Normal conjunctiva. Sclera non-icteric. NECK: Inspection normal. Non-tender. Supple and full ROM. No nuchal rigidity. CARDIAC: +S1S2 regular but borderline bradycardia, no murmurs. RESPIRATORY: Clear to auscultation. No wheezes or rales. Normal respiratory effort. There is a right chest tube in place with overlying dressing c/d/i. GI: +BS, soft, non-distended. No tenderness to palpation. No rebound or guarding. EXTREMITIES: No pedal edema or calf tenderness. Moving all extremities easily. NEURO: No gross neuro deficits. Results & Data Vital Signs (Past 12 Hours) Vital Signs Temp Pulse Pulse Resp BP BP Pulse Ox 02/15/19 11:20 36.8 C 58 L 18 145/72 H 96 02/15/19 09:20 64 02/15/19 09:04 37 C 66 16 185/84 H 92 02/15/19 07:30 71 13 177/94 H 97 02/15/19 07:26 100 02/15/19 07:01 57 L 13 100 02/15/19 07:00 62 15 169/83 H 100 02/15/19 06:30 60 14 145/80 H 100 02/15/19 06:13 58 L 13 142/78 H 99 02/15/19 06:00 67 18 170/99 H 100 02/15/19 05:20 74 17 161/89 H 99 02/15/19 05:13 76 15 166/97 H 100 02/15/19 05:10 79 16 182/102 H 100 02/15/19 05:00 81 16 175/98 H 100 02/15/19 04:58 82 20 192/105 H 100 02/15/19 04:27 73 20 168/86 H 91 02/15/19 04:26 75 91 02/15/19 04:07 36.8 C 78 18 197/113 H 94 Laboratory Results 02/15/19 02/15/19 02/15/19 Range/Units 06:00 06:00 06:00 WBC 14.82 H (4.8-10.8) K/uL RBC 4.51 L (4.7-6.1) M/uL Hgb 12.9 L (14.0-18.0) g/dL POC Hgb (14.0-18.0) g/dl Hct 38.6 L (42-52) % POC Hct (42-52) % MCV 85.6 (80-100) fL MCH 28.6 (25-34) pg MCHC 33.4 (32-36) g/dL RDW Std Deviation 44.4 (36.4-46.3) fL RDW Coeff of Arpit 14.1 (11.5-14.5) % Plt Count 199 (130-400) K/uL MPV 10.2 (7.4-10.4) fL Immature Gran % (Auto) 0.3 % Neut % (Auto) 89.4 % Lymph % (Auto) 4.3 % Power % (Auto) 5.4 % Eos % (Auto) 0.5 % Baso % (Auto) 0.1 % Immature Gran # (Auto) 0.04 H (0.00-0.02) K/uL Neut # (Auto) 13.25 H (1.4-6.5) K/uL Lymph # (Auto) 0.63 L (1.2-3.4) K/uL Power # (Auto) 0.80 H (0.11-0.59) K/uL Eos # (Auto) 0.08 (0-0.5) K/uL Baso # (Auto) 0.02 (0-0.2) K/uL PT 10.3 (9.0-12.0) Seconds INR 1.0 (0.9-1.1) APTT 24.6 (21.0-31.0) Seconds PTT Ratio 0.9 POC Sodium (135-144) mEq/L Sodium 139 (136-145) mmol/L POC Potassium (3.3-5.0) mEq/L Potassium 3.8 (3.5-5.1) mmol/L POC Chloride (101-112) mEq/L Chloride 103 (98-107) mmol/L Carbon Dioxide 31 (21-32) mmol/L POC Total CO2 (24-31) mEq/l Anion Gap 5.0 (3-11) POC Anion Gap (16-25) mmol/L POC BUN (7-18) mg/dl BUN 21 H (7-18) mg/dl Creatinine 1.18 (0.6-1.4) mg/dl POC Creatinine (0.6-1.3) mg/dl Est Cr Clr Drug Dosing 41.4 ml/min Est GFR ( Amer) 68.1 Est GFR (Non-Af Amer) 58.8 BUN/Creatinine Ratio 18.1 (10-20) Glucose 117 H (70-99) mg/dl POC Glucose (other) (70-99) mg/dl Calcium 8.8 (8.5-10.1) mg/dl POC Ioniz Calcium [place] (1.12-1.32) mmol/l Total Bilirubin 0.3 (0.2-1) mg/dl AST 17 (15-37) U/L ALT 16 (12-78) U/L Alkaline Phosphatase 87 (45-117) U/L Total Protein 7.4 (6.4-8.2) gm/dl Albumin 3.7 (3.4-5.0) gm/dl Globulin 3.7 (2.5-4.0) gm/dl Albumin/Globulin Ratio 1.0 (0.9-2) Urine Color Urine Appearance (Clear) Urine pH (4.5-7.5) Ur Specific [place] (1.000-1.030) Urine Protein (Negative) Urine Glucose (UA) (Negative) Urine Ketones (Negative) Urine Blood (Negative) Urine Nitrite (Negative) Urine Bilirubin (Negative) Urine Urobilinogen (Negative) Ur Leukocyte Esterase (Negative) 02/15/19 02/15/19 Range/Units 05:48 04:14 WBC (4.8-10.8) K/uL RBC (4.7-6.1) M/uL Hgb (14.0-18.0) g/dL POC Hgb 13.9 L (14.0-18.0) g/dl Hct (42-52) % POC Hct 41 L (42-52) % MCV (80-100) fL MCH (25-34) pg MCHC (32-36) g/dL RDW Std Deviation (36.4-46.3) fL RDW Coeff of Arpit (11.5-14.5) % Plt Count (130-400) K/uL MPV (7.4-10.4) fL Immature Gran % (Auto) % Neut % (Auto) % Lymph % (Auto) % Power % (Auto) % Eos % (Auto) % Baso % (Auto) % Immature Gran # (Auto) (0.00-0.02) K/uL Neut # (Auto) (1.4-6.5) K/uL Lymph # (Auto) (1.2-3.4) K/uL Power # (Auto) (0.11-0.59) K/uL Eos # (Auto) (0-0.5) K/uL Baso # (Auto) (0-0.2) K/uL PT (9.0-12.0) Seconds INR (0.9-1.1) APTT (21.0-31.0) Seconds PTT Ratio POC Sodium 140 (135-144) mEq/L Sodium (136-145) mmol/L POC Potassium 3.9 (3.3-5.0) mEq/L Potassium (3.5-5.1) mmol/L POC Chloride 100 L (101-112) mEq/L Chloride (98-107) mmol/L Carbon Dioxide (21-32) mmol/L POC Total CO2 30 (24-31) mEq/l Anion Gap (3-11) POC Anion Gap 15.0 L (16-25) mmol/L POC BUN 23 H (7-18) mg/dl BUN (7-18) mg/dl Creatinine (0.6-1.4) mg/dl POC Creatinine 1.2 (0.6-1.3) mg/dl Est Cr Clr Drug Dosing ml/min Est GFR ( Amer) Est GFR (Non-Af Amer) BUN/Creatinine Ratio (10-20) Glucose (70-99) mg/dl POC Glucose (other) 131 H (70-99) mg/dl Calcium (8.5-10.1) mg/dl POC Ioniz Calcium [place] 1.11 L (1.12-1.32) mmol/l Total Bilirubin (0.2-1) mg/dl AST (15-37) U/L ALT (12-78) U/L Alkaline Phosphatase (45-117) U/L Total Protein (6.4-8.2) gm/dl Albumin (3.4-5.0) gm/dl Globulin (2.5-4.0) gm/dl Albumin/Globulin Ratio (0.9-2) Urine Color Yellow Urine Appearance Clear (Clear) Urine pH 6.5 (4.5-7.5) Ur Specific [place] 1.036 H (1.000-1.030) Urine Protein Negative (Negative) Urine Glucose (UA) Negative (Negative) Urine Ketones Negative (Negative) Urine Blood Negative (Negative) Urine Nitrite Negative (Negative) Urine Bilirubin Negative (Negative) Urine Urobilinogen Negative (Negative) Ur Leukocyte Esterase Negative (Negative) Diagnostic Findings CT OF THE CHEST WITH IV CONTRAST FINDINGS: There is no evidence for traumatic injury to the thoracic aorta. The heart is mildly enlarged. Prominent retrocrural lymph nodes are unchanged since CT of October 28, 2011. These are benign. There is a moderate right pneumothorax. An acute nondisplaced fracture of the posterolateral right ninth rib is noted. No acute left rib fractures noted. There is no acute thoracic spine fracture. Right lung airspace opacities reflect atelectasis. A cyst within the upper pole the left kidney is noted. A right hepatic lobe lesion is unchanged since prior CT. This benign given stability. There are small gallstones within the gallbladder. IMPRESSION: 1. Moderate right pneumothorax. Acute nondisplaced fracture of the posterolateral right ninth rib. 2. No evidence for traumatic injury to the thoracic aorta. Medications Administered Current Inpatient Medications Heparin Sodium (Porcine) (Heparin Sodium (Porcine)) 5,000 units SQ Q8 JATIN Stop: 03/17/19 13:59 Acetaminophen (Ofirmev) 1,000 mg in 100 mls @ 400 mls/hr IV Q8@0000,0800,1600 JATIN Stop: 03/17/19 09:09 Last Infusion: 02/15/19 10:33 Dose: Infused Documented by: Ioversol (Optiray 320 100ml) 100 ml IV ONCE PRN PRN Reason: Interaction Checking Stop: 02/19/19 04:48 Last Admin: 02/15/19 04:50 Dose: 92 ml Documented by: Ondansetron HCl (Zofran) 4 mg IV Q6H PRN PRN Reason: Nausea Stop: 03/17/19 08:57 Oxycodone HCl (Roxicodone Immediate Rel) 5 mg PO Q6H PRN PRN Reason: Pain Stop: 03/01/19 07:27 Code Status & VTE Plan Code Status Conditional (Wants chest compressions but no mechanical ventilation). VTE Prophylaxis Plan VTE Prophylaxis will be ordered: Yes Supervising Physician Co-Signing Physician Notes Patient seen and examined with Dr. Montoya. I agree with their exam findings, review of systems, assessment and plan. I have personally reviewed the lab work and imaging from today. patient sleeping comfortably at the time of my exam, awoke easily, has some chest pain but controlled, mild dyspnea eating well Exam: WDWN male in NAD, lungs with decreased BS right apex, no wheezing, no crackles, normal respiratory effort, heart regular S1 S2 no murmurs - Traumatic pneumothorax right side due to rib fracture: chest tube placed, alternate water seal and suction q 4 hours pain control for rib fx with Tylenol and Percocet thoracic surgery following hopeful for CT removal in 1-2 days PG Care Time/CCT Total # of Minutes Spent Total Time Spent with Patient: Total time spent is greater than 50% in coordination of care (as documented) at patient's floor/unit and/or counseling patient: Resident Activity Tracking Resident Involvement: Resident Care Provided Care Provided: Adult Hospital Medicine (1) Pneumothorax Encounter type: initial encounter Pneumothorax type: traumatic Qualified Code(s): S27.0XXA - Traumatic pneumothorax, initial encounter
[2019-02-16] MEDS: OXYCODONE HCL IR 5 MG TAB (IMMEDIATE RELEASE) PO PRN ×3 (05:55→23:31)
[2019-02-16] MEDS: HEPARIN SOD 5,000 UNIT/0.5 ML VIAL SQ SCH ×3 (05:56→22:00)
[2019-02-16] MEDS ORDERED: SODIUM CHLORIDE 0.65% NA SOLN 45 ML (OCEAN) PRN (06:01)
--- NOTE | 2019-02-16 07:13 | XRay Report ---
XR chest 1V portable CLINICAL HISTORY: 78 years-old Male presenting with pneumothorax. TECHNIQUE: Portable upright AP view of the chest was obtained. COMPARISON: 02/15/2019. FINDINGS: Right pleural catheter remains position at the periphery of the right upper lung. Atherosclerosis of the aortic arch. Cardiac silhouette borderline enlarged. Elevation of the left hemidiaphragm. Bibasil ar opacities. Mild pulmonary vascular prominence. Diffuse interstitial prominence. Suspected small ri ght pneumothorax. This is primarily evident laterally. Less likely this could be a skin fold. Osseous structures normal. External leads overlie the left upper quadrant to grating evaluation of this natalio on. IMPRESSION: 1. Small right pneumothorax with a pleural drain in place. 2. Bibasilar opacities likely atelectasis. 3. Borderline cardiomegaly. 4. Mild volume overload new from prior. Electronically signed by: Santos Tipton M.D. 02/16/2019 7:12 AM
[2019-02-16 08:07] LABS: Basophils # (auto) 0.02 K/uL (0-0.2); Basophils % (auto) 0.2 %; Eosinophils # (auto) 0.09 K/uL (0-0.5); Eosinophils % (auto) 1.1 %; Hematocrit (blood only) 36.4 % (42-52); Hemoglobin 12.4 g/dL (14.0-18.0); Immature Granulocytes # (auto) 0.01 K/uL (0.00-0.02); Immature Granulocytes % (auto) 0.1 %; Lymphocytes # (auto) 0.59 K/uL (1.2-3.4); Lymphocytes % (auto) 7.2 %; Mean Corpuscular Hemoglobin 29.2 pg (25-34); Mean Corpuscular Hgb Conc 34.1 g/dL (32-36); Mean Corpuscular Volume 85.8 fL (80-100); Mean Platelet Volume 9.8 fL (7.4-10.4); Monocytes % (auto) 7.3 %; Neutrophils # (auto) 6.86 K/uL (1.4-6.5); Neutrophils % (auto) 84.1 %; Platelet Count 193 K/uL (130-400); RDW Coefficient of Variation 14.5 % (11.5-14.5); RDW Standard Deviation 45.1 fL (36.4-46.3); Red Blood Count 4.24 M/uL (4.7-6.1); White Blood Count 8.17 K/uL (4.8-10.8)
[2019-02-16] MEDS: FLUTICASONE PROPIONATE NA SPR 16 GM BTL SCH ×2 (08:39→21:59)
--- NOTE | 2019-02-16 08:56 | Progress Note ---
DATE: 02/16/2019 Mr. Oneill was seen today. He is much better than he was in the Emergency Room. He is sitting up, eating. He has just completed breakfast. Chest x-ray shows essentially full expansion of the lung. There was a line laterally that radiology is pointing out; however, I believe this is a skin fold. He has lung markings beyond this. He has no air leak and in fact his catheter is occluded with fluid. I removed the catheter at bedside. The site is clean. We will check a chest x-ray later today. He looks much improved.
--- NOTE | 2019-02-16 09:09 | XRay Report ---
XR chest 1V portable CLINICAL HISTORY: s/p chest tube removal COMPARISON STUDY: Chest radiograph performed earlier today. CT February 15, 2019. FINDINGS: A trace right apical pneumothorax is noted. The right pleural catheter has been removed. Bi basilar opacities are noted. There are small bilateral pleural effusions. There is no evidence for pu lmonary edema. Cardiomediastinal silhouette is stable. Nondisplaced right ninth rib fracture is again noted. IMPRESSION: 1. Trace right apical pneumothorax following pleural catheter removal. 2. Small bilateral pleural effusions with bibasilar opacities suggestive of atelectasis. Electronically signed by: Rajendra Wood M.D. 02/16/2019 9:07 AM
[2019-02-16] MEDS: ACETAMINOPHEN 1,000 MG/100 ML VIAL IV SCH (09:59)
--- NOTE | 2019-02-16 14:28 | Family Medicine Progress Note ---
Date of Service February 16, 2019 Assessment & Plan (1) Fall: Mr. Oneill was admitted to [facility] on 02/15/19 for a mechanical fall of unknown etiology. The fall occurred shortly after he leigh from a seated position, suggestive of an orthostatic etiology. He struck the right side of his thorax during the fall and was found to have a nondisplaced fracture of the R posterolateral 9th rib and a moderate R pneumothorax. Cardiothoracic surgery was consulted and placed a chest tube with intermittent negative pressure and water seal. The chest tube was removed on 02/16/19. - repeat cxr ordered - continue to control pain with Tylenol PO and narcotics as needed -incentive spirometry - on 2L Oxygen via mask - PT/OT ordered today Dispo: Floor FENGI: regular diet DVT: Heparin, 5,000units, SQ, q8hr Code Status: Full (2) Pneumothorax: plan as above (3) Closed rib fracture: -analgesia as above - patient will follow up with Dr. Krishnan after discharge (4) Cerebral palsy: chronic (5) Prostate cancer: chronic (6) Gallstones: Incidental finding noted on admission chest CT -patient aware (7) Liver lesion, left lobe: Incidental finding noted on admission chest CT -patient aware (8) Cyst of left kidney: Incidental finding noted on admission chest CT -patient aware (9) Seasonal allergies: Supervising Physician Co-Signing Physician Notes Patient seen and examined with Dr. Coronado. I agree with their exam findings, review of systems, assessment and plan. I have personally reviewed the lab work and imaging from today. patient sitting up in chair, breathing well, c/o some mild rib pain but only with deep inspiration chest tube removed this morning, CXR with trace residual pneumothorax appreciate assistance from Dr. Krishnan Exam: WDWN male in NAD, lungs with decreased BS right apex, no wheezing, no crackles, normal respiratory effort, heart regular S1 S2 no murmurs - Traumatic pneumothorax right side due to rib fracture: chest tube placed in ED, alternate water seal and suction q 4 hours chest tube removed on 02/16, breathing well, Dr. Krishnan to follow pain control for rib fx with Tylenol and Percocet, change Tylenol to PO - Fall, weakness: will consult PT/OT to make sure he is stable to return to current living situation Subjective states that his chest tube was removed shortly before this visit; he does have right sided chest pain. amenable to having PT/OT evaluate him Review of Systems Cardiovascular: + chest pain (Right sided (area where chest tube was removed)) Physical Exam Constitutional: WD/WN, vitals as above Eyes: + anicteric sclerae ENMT: external ear and nose normal, oropharynx normal Neck: trachea midline Respiratory: normal respiratory effort, lungs clear to auscultation Cardiovascular: RRR, no murmur, no edema Heart Sounds: normal S1 and normal S2 Skin: no rashes, warm and dry Neurologic: awake Psychiatric: A+Ox3, euthymic affect Results & Data Vital Signs (Past 12 Hours) Vital Signs Temp Pulse Pulse Resp BP BP Pulse Ox 02/16/19 11:00 36.9 C 71 18 121/74 94 02/16/19 08:00 81 02/16/19 07:00 36.8 C 81 20 174/85 H 92 02/16/19 04:39 36.9 C 69 20 165/75 H 90 Laboratory Results 02/16/19 Range/Units 07:49 WBC 8.17 (4.8-10.8) K/uL RBC 4.24 L (4.7-6.1) M/uL Hgb 12.4 L (14.0-18.0) g/dL Hct 36.4 L (42-52) % MCV 85.8 (80-100) fL MCH 29.2 (25-34) pg MCHC 34.1 (32-36) g/dL RDW Std Deviation 45.1 (36.4-46.3) fL RDW Coeff of Arpit 14.5 (11.5-14.5) % Plt Count 193 (130-400) K/uL MPV 9.8 (7.4-10.4) fL Immature Gran % (Auto) 0.1 % Neut % (Auto) 84.1 % Lymph % (Auto) 7.2 % Coffey % (Auto) 7.3 % Eos % (Auto) 1.1 % Baso % (Auto) 0.2 % Immature Gran # (Auto) 0.01 (0.00-0.02) K/uL Neut # (Auto) 6.86 H (1.4-6.5) K/uL Lymph # (Auto) 0.59 L (1.2-3.4) K/uL Coffey # (Auto) 0.60 H (0.11-0.59) K/uL Eos # (Auto) 0.09 (0-0.5) K/uL Baso # (Auto) 0.02 (0-0.2) K/uL PG Care Time/CCT Total # of Minutes Spent Total Time Spent with Patient: Total time spent is greater than 50% in coordination of care (as documented) at patient's floor/unit and/or counseling patient: Resident Activity Tracking Resident Involvement: Resident Care Provided Care Provided: Adult [facility] Medicine (1) Pneumothorax Encounter type: initial encounter Pneumothorax type: traumatic Qualified Code(s): S27.0XXA - Traumatic pneumothorax, initial encounter
[2019-02-16] MEDS: ACETAMINOPHEN 500 MG TAB PO PRN (18:40)
[2019-02-17] MEDS: ACETAMINOPHEN 500 MG TAB PO PRN (03:26)
[2019-02-17] MEDS: HEPARIN SOD 5,000 UNIT/0.5 ML VIAL SQ SCH ×2 (05:35→12:49)
--- NOTE | 2019-02-17 07:16 | XRay Report ---
XR chest 1V portable CLINICAL HISTORY: pneumothorax COMPARISON STUDY: Chest radiograph February 16, 2019 at 8:48 AM. FINDINGS: The right pneumothorax is no longer identified. Nondisplaced posterior right ninth rib frac ture is better depicted on prior chest CT. Elevation of the left hemidiaphragm is unchanged. There ma y be a trace pleural effusion. There is no evidence for pulmonary edema. Cardiomediastinal silhouette is stable. Trace right pleural effusion is noted. IMPRESSION: 1. No pneumothorax. 2. Trace bilateral pleural effusions. Electronically signed by: Rajendra Wood M.D. 02/17/2019 7:15 AM
[2019-02-17] MEDS: FLUTICASONE PROPIONATE NA SPR 16 GM BTL SCH (08:34)
--- NOTE | 2019-02-17 09:22 | Discharge Summary ---
Date of Service February 17, 2019 Admission HPI Per Admitting Provider 78-year-old male presents to the emergency department after suffering a mechanical fall prior to arrival. Patient says that much earlier this morning he went to get out of bed to use the bathroom. He thinks he sat up too quickly because he immediately felt a bit more weak and off balance. He then fell and struck the right side of his chest into the leg of his walker. He remembers all events and denies any head injury or loss of consciousness. He says he tried to get back up but it was too painful, so he called for assistance (lives in a [facility] home) and was ultimately brought to the hospital. At present, patient says that the right side of his chest is uncomfortable but not particularly painful. He did have some immediate difficulty breathing which has improved since placement of his chest tube. Denies any classic "chest pain" throughout this time. He denies any known trauma otherwise from his fall, specifically denying any neck, abdominal, back, or extremity pains. No other acute patient concerns. - Past medical history includes seasonal allergies, mild cerebral palsy, prostate cancer. - Past surgical history includes cataract removal, tonsillectomy. - Social history includes never smoked. Occasional alcohol use. Lives in a [facility] home. Admission Exam Per Admitting Provider 78-year-old male presents to the emergency department after suffering a mechanical fall prior to arrival. Patient says that much earlier this morning he went to get out of bed to use the bathroom. He thinks he sat up too quickly because he immediately felt a bit more weak and off balance. He then fell and struck the right side of his chest into the leg of his walker. He remembers all events and denies any head injury or loss of consciousness. He says he tried to get back up but it was too painful, so he called for assistance (lives in a [facility] home) and was ultimately brought to the hospital. At present, patient says that the right side of his chest is uncomfortable but not particularly painful. He did have some immediate difficulty breathing which has improved since placement of his chest tube. Denies any classic "chest pain" throughout this time. He denies any known trauma otherwise from his fall, specifically denying any neck, abdominal, back, or extremity pains. No other acute patient concerns. - Past medical history includes seasonal allergies, mild cerebral palsy, prostate cancer. - Past surgical history includes cataract removal, tonsillectomy. - Social history includes never smoked. Occasional alcohol use. Lives in a [facility] home. Principal Diagnosis Rib Fracture Pneumothorax Discharge Exam Constitutional WD/WN, vitals as above Eyes + anicteric sclerae ENMT external ear and nose normal, oropharynx normal Neck trachea midline Respiratory normal respiratory effort, lungs clear to auscultation Cardiovascular RRR, no murmur, no edema Heart Sounds: normal S1 and normal S2 Chest (Breasts) Additional Comments: posterior aspect of chest wall is tender on R side Skin no rashes, warm and dry Neurologic awake Psychiatric A+Ox3, euthymic affect Discharge Data Allergies Allergy/AdvReac Type Severity Reaction Status Date / Time cat dander Allergy Unknown RESPIRATORY Verified 02/06/19 13:43 SYMPTOMS HAYFEVER Allergy UNKNOWN Uncoded 02/06/19 13:43 Consultations 02/15/19 05:37 ED Decision to Admit Stat 02/15/19 12:30 Consult Thoracic Surgery Routine Ordered Studies 02/15/19 04:08 CT cervical spine wo con Urgent IMPRESSION: 1. No acute cervical spine fracture or subluxation. 2. Right pneumothorax which is better depicted on the chest CT. Please see that report for further description. CT chest w con Urgent IMPRESSION: 1. Moderate right pneumothorax. Acute nondisplaced fracture of the posterolateral right ninth rib. 2. No evidence for traumatic injury to the thoracic aorta. CT head/brain wo con Urgent IMPRESSION: 1. No acute intracranial abnormality. 2. Cerebellar atrophy. This can be seen in the setting of certain medication use or vitamin deficiencies among many other etiologies. Hospital Course (1) Fall: Mr. Oneill was admitted to [facility] on 02/15/19-02/18/19 for a mechanical fall. The fall occurred shortly after he leigh from a seated position, suggestive of an orthostatic etiology. He struck the right side of his thorax during the fall and was found to have a nondisplaced fracture of the R posterolateral 9th rib and a moderate R pneumothorax. Cardiothoracic surgery was consulted and placed a chest tube with intermittent negative pressure and water seal. He was also started on supplemental oxygen therapy. The chest tube was removed on 02/16/19. Repeat chest xray on 02/17/18 showed resolution of pneumothorax and trace bilateral pleural effusions. Mr. Oneill was advised to use incentive spirometry and was treated with narcotic pain medications for analgesia. He was [facility] back to his personal [facility] with a short-term script for oxycodone. He was directed to use OTC Tylenol as a primary method to control his pain, and to use the oxycodone only for breakthrough discomfort. Physical therapy evaluated Mr. Oneill while in the hospital and recommended continued physical therapy at his personal [facility] following discharge. He was provided with a script for continued PT. He was discharged to his personal [facility] on 2L ambulatory oxygen. Patient was advised to follow up with cardiothoracic surgeon Dr. Krishnan as an outpatient for surveillance of his rib fracture. Outpatient items to do: Clinically monitor for rib fracture complications: pneumonia, pleural effusion, recurrent pneumothorax. Analgesia as needed. Wean oxygen as tolerated (2) Pneumothorax: A right sided moderate pneumothorax was noted on admission Chest CT. Etiology likely rib fracture secondary to mechanical fall. Management as above. (3) Closed rib fracture: Noted on admission chest CT scan. Management as above (4) Cerebral palsy: chronic (5) Prostate cancer: chronic. PSA drawn 02/06/10 <0.01. (6) Gallstones: Incidental finding noted on admission chest CT. Results discussed with patient (7) Cyst of left kidney: Incidental finding noted on admission chest CT. Results discussed with patient (8) Seasonal allergies: (9) Liver lesion, right lobe: Incidental finding noted on admission chest CT. The radiologist felt that this was likely to be benign given the fact that it was unchanged from a prior CT scan. Results discussed with patient. Total Time Total Time Spent Total Time Spent (In Minutes): see attending attestation Discharge Plan Discharge Items Patient Disposition: Home - Home Health Services Reason For Visit: PNEUMOTHORAX Discharge Diagnosis: Rib Fracture Pneumothorax Condition on Discharge: Good Activity: Resume your previous activity Non-emergency contact: Primary Care Provider Call non-emergency contact if: your pain is unusual for you and your temperature is above 101 Follow-up/Referrals: PCP,NO [Primary Care Provider] - Diet: Regular Addtl Attending Provider Instructions: You were admitted to [facility] on 02/15/19-02/17/19 for medical evaluation after a fall. Physical therapy evaluated you during your stay and recommended continued physical therapy when your return to your personal [facility]. Rib Fracture An cat scan of your chest was performed and showed a fracture of the 9th rib on your right side. You were treated with pain medications for the rib fracture. You should follow up with Dr. Krishnan, the cardiothoracic surgeon, as an outpatient. You may continue to take Tylenol, 600mg, every 4 hours for pain control. Do not take more than 4,000mg of Tylenol in 24 hours. If the Tylenol does not adequately control your pain you may use oxycodone, 5mg, every 6 hours for additional relief. A script for the oxycodone was provided at discharge. Pneumothorax A pneumothorax, or a small pocket of air between your right lung and the chest wall was also found on your chest cat scan. The cause of the pneumothorax was likely from the fractured rib. Cardiothoracic surgery was consulted during your hospital stay and they placed a chest tube on your right side which helped remove the pocket of air. The chest tube was removed before your discharge. A repeat chest x-ray showed resolution of your pneumothorax. You should follow up with Dr. Krishnan, the cardiothoracic surgeon, as an outpatient. Other findings: The cat scan of your chest showed several incidental findings. You were found to have several stones in your gallbladder. You were also found to have a lesion on the left lobe of your liver and L kidney cyst. You were notified of these incidental findings during your hospital stay. You should follow up with your primary care doctor regarding these results. Pending Studies at Discharge: No Stand-Alone Forms: My [facility] Medications and DC Order Prescriptions: New acetaminophen [Tylenol Extra Strength] 500 mg Tablet 1,000 mg PO Q8H PRN (Reason: Rib fracture) 14 Days Qty: 42 RF: 0 oxycodone 5 mg Tablet 5 mg PO Q6H MDD 20mg PRN (Reason: Rib Fracture) 5 Days Qty: 20 RF: 0 fluticasone propionate 50 mcg/actuation [place],Suspension 1 spry NA BID 30 Days Qty: 1 RF: 0 sodium chloride [Saline Mist] 0.65 % Aerosol,[place] 0.65 spray NA NOW PRN (Reason: Seasonal Allergies) 30 Days Qty: 1 RF: 0 No Action No Known Home Medications RF: 0 Discharge Orders: Discharge Order (Routine); Ordered 02/17/19 Ordered By: Hayley Coronado Admission Data Admit Date/Time: 02/15/19 07:56 Attending Provider: Jayce Pink Admit Provider: Jayce Pink Primary Care Provider: PCP,NO Other Providers: Jean Paul Gatica ; Abdulaziz Krishnan. Other Interventions: Discharge Summary Assessment (RN) Last Done: 02/17/19 12:52 Supervising Physician Co-Signing Physician Notes Patient seen and examined with Dr. Coronado. I agree with their exam findings, review of systems, assessment and plan. I have personally reviewed the lab work and imaging from today. patient sitting up in chair, breathing well, c/o some mild rib pain but only with deep inspiration CXR this AM with no pneumothorax, can follow up with Dr. Krishnan in the office 2 step shows that he needs 2L on ambulation Exam: WDWN male in NAD, lungs CTA bilaterally, normal respiratory effort, heart regular S1 S2 no murmurs - Traumatic pneumothorax right side due to rib fracture: chest tube placed in ED, alternate water seal and suction q 4 hours chest tube removed on 02/16, breathing well, Dr. Krishnan to follow pain control for rib fx with Tylenol and Percocet, change Tylenol to PO CXR on 02/17 with no pneumothorax 2 step shows that he needs some supplemental oxygen on ambulation, will arrange on discharge - Fall, weakness: PT/OT recommends [facility] at [facility], script provided Resident Activity Tracking Resident Involvement: Resident Care Provided Care Provided: Adult Hospital Medicine
[2019-02-17] MEDS: OXYCODONE HCL IR 5 MG TAB (IMMEDIATE RELEASE) PO PRN (09:23)
--- NOTE | 2019-02-17 13:42 | Progress Note ---
DATE: 02/17/2019 Mr. Oneill had had chest x-ray which shows no evidence of pneumothorax or effusion. We will sign off this case. Please call if we are needed.
== END 2019-02-17 16:13 | disposition home health service (06) | DRG 200 ==
LOC: ED 04:00 → 2W 07:56